=== PATIENT | female | born 1995 | race Caucasian/White ===

== ENCOUNTER 2017-11-10 15:53 | Emergency (ER) | payer MEDICAID ==
[~2017-11-10] VITALS: Ht 167.6 cm; Wt 61.4 kg
[2017-11-10 15:57] VITALS: BP 123/56; PULSE 95; TEMP 98.1
[2017-11-10] MEDS ORDERED: ZOFRAN 4MG T4 MG/TAB PO (16:01)
== END 2017-11-10 16:13 | disposition left against medical advice (07) ==
LOC: COL.ER 15:53
DX: O26.851 Spotting complicating pregnancy, first trimester (principal); Z3A.10 10 weeks gestation of pregnancy